=== PATIENT | female | born 1970 | race Caucasian/White ===

== ENCOUNTER → 2020-04-13 | Outpatient (CLI) | payer OTHER, SELFPAY ==
[~2020-04-13] VITALS: Ht 175.3 cm; Wt 52.6 kg
== END | disposition home or self-care (01) ==
LOC: LB 08:00 → DS 04-16 09:17 → EDSTATUS 04-16 10:04 → DS 04-16 12:34
PROVIDERS: ATTEND Surgery
DX: K52.9 Noninfective gastroenteritis and colitis, unspecified (principal)
CPT/HCPCS: U0003-CS